=== PATIENT | female | born 1995 | race Asian ===

== ENCOUNTER 2023-10-18 06:07 | Outpatient (REF) | payer OTHER, SELFPAY ==
--- NOTE | ~2023-10-18 | US_ITS ---
EXAMINATION: US PELVIS COMPLETE CLINICAL INFORMATION: Pain COMPARISON: None TECHNIQUE: Transabdominal and transvaginal imaging was performed. FINDINGS: The uterus is of normal size and echogenicity measuring 8.0 x 3.7 x 4.6 cm. Uterus is retroflexed in position. A regular homogeneous endometrium is identified measuring 0.8 cm. A 1.8 x 0.4 x 1.0 cm solid vascular mass within the endocervical canal suggesting an endocervical polyp, recommend gynecologic evaluation and management. Both ovaries are of normal size and echogenicity. The right measures 2.4 x 2.4 x 2.5 cm for a volume of 7.3 mL. The left measures 2.0 x 1.6 x 1.6 cm for a volume of 2.6 mL. There is no pelvic free fluid. US/US pelvic and transvaginal IMPRESSION: A 1.8 cm solid vascular mass within the endocervical canal suggesting an endocervical polyp, recommend gynecologic evaluation and management.
--- NOTE | ~2023-10-18 | US_ITS ---
EXAMINATION: US ABDOMEN COMPLETE CLINICAL INFORMATION: Abdominal pain. COMPARISON: None available. TECHNIQUE: Real-time imaging of the abdominal viscera. Limited visualization due to bowel gas. FINDINGS: PANCREAS: Limited visualization of pancreatic tail and head. Imaged portion of pancreatic body is unremarkable. ABDOMINAL AORTA: Nonaneurysmal. INFERIOR VENA CAVA: Visualized portions are normal. LIVER: Mildly increased hepatic parenchymal heterogeneity and echogenicity could be associated with hepatocellular disease/hepatic steatosis and substantially limits visualization. Correlation with liver function tests and clinical exam recommended to determine further management. GALLBLADDER: No gallstones. No gallbladder wall thickening. COMMON BILE DUCT: Normal in caliber measuring 0.21 cm in diameter. RIGHT KIDNEY: No hydronephrosis. No renal calculi. Limited visualization. The kidney measures 8.7 cm in maximum dimension. LEFT KIDNEY: No hydronephrosis. No renal calculi. Limited visualization. The kidney measures 9.3 cm in maximum dimension. SPLEEN: Normal. The spleen measures 8.6 cm in maximum dimension. FREE FLUID: None. US/US abdomen complete IMPRESSION: 1. Mildly increased hepatic parenchymal heterogeneity and echogenicity could be associated with hepatocellular disease/hepatic steatosis and substantially limits visualization. Correlation with liver function tests and clinical exam recommended to determine further management. 2. Limited visualization. CT scan could be considered for further evaluation based on the clinical assessment for this patient with abdominal pain.
== END 2023-10-18 06:08 | disposition home or self-care (01) ==
LOC: HO.UMASIMG 06:07
PROVIDERS: Visit Provider Family Medicine
DX: R10.9 Unspecified abdominal pain (principal); R30.0 Dysuria; D50.9 Iron deficiency anemia, unspecified
CPT/HCPCS: 76700; 76830; 76856

== ENCOUNTER 2024-09-18 06:09 | Outpatient (REF) | payer OTHER, SELFPAY ==
--- NOTE | ~2024-09-18 | US_ITS ---
EXAMINATION: US ABDOMEN COMPLETE CLINICAL INFORMATION: Abdominal pain and bloating. COMPARISON: Abdominal ultrasound dated 10/18/2023. TECHNIQUE: Real-time imaging of the abdominal viscera. FINDINGS: PANCREAS: Visualized portions are unremarkable. ABDOMINAL AORTA: The proximal, mid, and distal segments are normal in caliber. INFERIOR VENA CAVA: Visualized portions are normal. LIVER: The liver is normal in size. The liver contour is normal. Increased parenchymal echogenicity, unchanged. No focal hepatic lesion. There is no intrahepatic biliary duct dilatation seen. GALLBLADDER: The gallbladder is physiologically distended without evidence of stones, sludge, polyps, wall thickening or pericholecystic fluid. COMMON BILE DUCT: Normal in caliber measuring 0.2 cm in diameter. RIGHT KIDNEY: No hydronephrosis. No renal calculi or focal parenchymal lesions. The kidney measures 10 cm in maximum dimension. LEFT KIDNEY: No hydronephrosis. No renal calculi or focal parenchymal lesions. The kidney measures 9.9 cm in maximum dimension. SPLEEN: The spleen measures 9.5 cm in maximum dimension. FREE FLUID: None. US/US abdomen complete IMPRESSION: 1. Increased hepatic parenchymal echogenicity, unchanged. Findings are nonspecific, but can be seen in the setting of steatosis. Underlying hepatocellular disease cannot be excluded. No hepatic parenchymal lesion or biliary ductal dilatation. 2. No cholelithiasis, gallbladder wall thickening, or pericholecystic free fluid to suggest acute cholecystitis. Electronically signed by: Eleuterio Betancourt MD 09/19/2024 10:53 PM [facility]
--- NOTE | ~2024-09-18 | US_ITS ---
EXAMINATION: US PELVIS CLINICAL INFORMATION: Pelvic pain and distention COMPARISON: Ultrasound pelvis 10/18/2023 TECHNIQUE: Ultrasound of the pelvis is performed using both transabdominal and transvaginal transducers along with Doppler. Transvaginal imaging is performed due to inadequate visualization transabdominally. FINDINGS: Uterus: The uterus is anteverted and measures 8.2 x 4.1 x 5.3 cm. The double wall endometrial thickness is 16 mm. The uterus is smooth in contour and has normal myometrial echogenicity. No visible fibroid. Nabothian cysts are present Adnexa: Both ovaries are visualized. There is normal color flow to the adnexa. There is no ovarian torsion. There is no pelvic ascites or fluid collection. Right ovary measures 2.8 x 1.7 x 1.8 cm for a volume of 4.4 cc. There is a question of an adjacent cyst versus hydrosalpinx measuring 3.6 x 2.3 x 2.0 cm. Left ovary measures 2.7 x 2.0 x 1.6 cm for a volume of 4.4 cc. US/US pelvic and transvaginal IMPRESSION: Question of right adnexal cyst versus hydrosalpinx. Follow-up ultrasound in 6-8 weeks is recommended. If findings do not resolve, pelvic MRI may be useful for further evaluation. Electronically signed by: Ted Mcgee MD 09/19/2024 12:11 AM [facility]
== END 2024-09-18 06:10 | disposition home or self-care (01) ==
LOC: HO.UMASIMG 06:09
PROVIDERS: Visit Provider Family Medicine
DX: R42 Dizziness and giddiness (principal); R14.0 Abdominal distension (gaseous)
CPT/HCPCS: 76700; 76830; 76856

== ENCOUNTER 2024-11-20 08:22 | Outpatient (REF) | payer OTHER, SELFPAY | END 2024-11-20 08:23 | disposition home or self-care (01) | LOC: HO.UMASIMG 08:22 | PROVIDERS: Visit Provider Family Medicine | DX: Z13.89 Encounter for screening for other disorder (principal) ==

== ENCOUNTER 2024-11-25 08:32 | Outpatient (REF) | payer OTHER, SELFPAY | END 2024-11-25 08:33 | disposition home or self-care (01) | LOC: HO.UMASIMG 08:32 | PROVIDERS: Visit Provider Family Medicine | DX: Z13.89 Encounter for screening for other disorder (principal) ==

== ENCOUNTER 2025-01-13 06:32 | Outpatient (REF) | payer OTHER, SELFPAY ==
--- NOTE | ~2025-01-13 | US_ITS ---
EXAMINATION: US PELVIS CLINICAL INFORMATION: Follow-up ovarian cysts. COMPARISON: 09/18/2024, 10/18/2023. TECHNIQUE: Ultrasound of the pelvis is performed using both transabdominal and transvaginal transducers along with Doppler. Transvaginal imaging is performed due to inadequate visualization transabdominally. FINDINGS: Uterus: The uterus is anteverted, anteflexed, and measures 9.6 x 5.1 x 5.8 cm. Normal-appearing cervix with small nabothian cysts. No definite cervical canal polyp is identified on today's examination. The double wall endometrial thickness is 13 mm. It is uniform without irregularity. The uterus is smooth in contour and has normal myometrial echogenicity. No visible fibroid. Adnexa: Both ovaries are visualized. There is normal color flow to the adnexa. There is no ovarian torsion. There is no pelvic ascites or fluid collection. Right ovary measures 2.5 x 1.3 x 2.0 cm. Volume = 3.5 mL. Normal sonographic appearance. Previously seen right adnexal cyst is no longer visualized. Left ovary measures 3.0 x 2.3 x 1.9 cm. Volume = 7.0 mL. Normal sonographic appearance. US/US pelvic and transvaginal IMPRESSION: 1. Normal pelvic ultrasound. The previously seen right adnexal cyst is no longer visualized on today's examination. Electronically signed by: Carson Fox MD 01/13/2025 04:52 PM EDT
== END 2025-01-13 06:33 | disposition home or self-care (01) ==
LOC: HO.UMASIMG 06:32
PROVIDERS: Visit Provider Family Medicine
DX: N83.202 Unspecified ovarian cyst, left side (principal)
CPT/HCPCS: 76830; 76856

== ENCOUNTER → 2025-01-13 15:30 | Outpatient (BNV) | payer OTHER, SELFPAY | PROVIDERS: Visit Provider Radiology Diagnostic Radiology | DX: N83.201 Unspecified ovarian cyst, right side (principal) | CPT/HCPCS: 76830; 76856 ==